=== PATIENT | male | born 1945 | race Caucasian/White ===

== ENCOUNTER → 2023-10-18 12:50 | Outpatient (REF) | payer MEDICARE, SELFPAY | LOC: DHCBC MAIN 12:50 | PROVIDERS: ATTENDING PHYSICIAN Internal Medicine Cardiovascular Disease; FAMILY PHYSICIAN Internal Medicine | DX: R06.00 Dyspnea, unspecified (principal); I48.21 Permanent atrial fibrillation | CPT/HCPCS: 93306 ==

== ENCOUNTER → 2025-02-03 12:52 | Outpatient (REF) | payer MEDICARE, SELFPAY | LOC: RAD 12:52 | PROVIDERS: ATTENDING PHYSICIAN Internal Medicine; FAMILY PHYSICIAN Internal Medicine | DX: I48.21 Permanent atrial fibrillation (principal); I77.810 Thoracic aortic ectasia | CPT/HCPCS: 71275; Q9967 ==

== ENCOUNTER → 2025-03-03 11:12 | Outpatient (REF) | payer MEDICARE, SELFPAY | LOC: HWRAD 11:12 | PROVIDERS: ATTENDING PHYSICIAN Internal Medicine; FAMILY PHYSICIAN Internal Medicine | DX: E04.1 Nontoxic single thyroid nodule (principal) | CPT/HCPCS: 76536 ==

== ENCOUNTER → 2025-04-16 12:31 | Outpatient (REF) | payer MEDICARE, SELFPAY ==
[2025-04-16 13:50] LABS: Hematocrit 39.0 % (39.0-52.0); Hemoglobin 12.9 g/dL (13.0-18.0); Mean Corp Hgb Conc. 33.1 g/dL (33.0-37.0); Mean Corpuscular Volume 92.2 fL (80.0-94.0); Nucleated Red Blood Cells % 0 % (-); Platelet Count 195 10^3/uL (130-400); Red Cell Dist. Width 14.4 % (11.5-14.5)
[2025-04-16 14:07] LABS: ALT (SGPT) 18 U/L (0-50); AST (SGOT) 22 U/L (17-59); Albumin 4.1 g/dl (3.5-5.0); Alkaline Phosphatase 83 U/L (38-126); Blood Urea Nitrogen 23 mg/dl (9-20); Calcium 9.3 mg/dl (8.4-10.2); Carbon Dioxide 29 mmol/L (22-30); Chloride 103 mmol/L (98-107); Glucose 87 mg/dl (70-99); Potassium 4.7 mmol/L (3.5-5.1); Sodium 139 mmol/L (135-145); Total Protein 7.5 g/dl (6.3-8.2); eGFR > 60.00
== END ==
LOC: SDSPAT 12:31
PROVIDERS: ATTENDING PHYSICIAN Student in an Organized Health Care Education/Training Program; FAMILY PHYSICIAN Internal Medicine; OTHER PHYSICIAN Internal Medicine
DX: R94.39 Abnormal result of other cardiovascular function study (principal)
CPT/HCPCS: 36415; 80053; 83880; 85025; 93005

== ENCOUNTER → 2025-04-22 12:35 | Outpatient (REF) | payer MEDICARE, SELFPAY ==
[2025-04-22 12:50] VITALS: BP 110/64; BP_SYST 62
[2025-04-22 13:50] VITALS: BP 110/64
== END ==
LOC: RADI 12:35
PROVIDERS: ATTENDING PHYSICIAN Surgery; FAMILY PHYSICIAN Internal Medicine
DX: E04.1 Nontoxic single thyroid nodule (principal)
CPT/HCPCS: 10005; 88173

== ENCOUNTER 2025-05-05 08:19 | Day surgery (SDC) | payer MEDICARE, SELFPAY ==
[2025-04-16 12:50] VITALS: BMI 38.6
--- NOTE | 2025-04-16 13:40 | SLEEP.APNEA ---
Sleep Apnea Order
-
Patient screened as High Risk for Sleep Apnea on Stop Bang Questionnaire. Patient referred to [facility] for Pre-Study.

Name: MART MCADAMS
: 1945
Home Phone: Use [email or web address] instead
Cell Phone: [f_Reg Other Phone]
Work Phone:
Address: [address] [place] [address]
City: [place]
State: [place]
Zip: [f_[facility] Zip]
Family Physician: NO INTERVIEW UNKNOWN
Height 5 ft 3 in
Actual Weight 98.9 kg
Body Mass Index (BMI) 38.6
Ordering Provider: Dinah Tatum
[2025-05-05] VITALS (13 sets, daily range): BP systolic 143–174; BP diastolic 79–98; BMI 38.6
[2025-05-05] MEDS: NSS 297 ML IV (09:12)
--- NOTE | 2025-05-05 13:13 | ITS.CL.PN ---
Front End [employer] Developer - Procedure Note
Procedure
Procedure Note:
CARDIAC CATHETERIZATION REPORT
Date of Procedure: 05/05/2025
Referring: Dr. Delta Dinero MD, PhD
Indication: Dyspnea on exertion, positive cardiac stress test
PROCEDURE(S)
1. left heart catheterization
2. coronary angiography
ACCESS: 6F right common femoral artery (closure: Angioseal x1; of note, right radial access was abandoned due to severe subclavian tortuosity that made catheter manipulation impossible)
CATHETERS
1. 6F JR4
2. 6F JL5
MODERATE SEDATION: 35 minutes of moderate sedation was utilized. An independent medical microbiologist was present to assist with and help manage the patient's level of consciousness and physiologic status.
HEMODYNAMIC DATA
LV 152/20 (EDP 26) mmHg
AO 157/82 (mean 112) mmHg
CORONARY ANGIOGRAPHY
Dominance: Right
LM: large vessel with mild distal tapering.
LAD: large vessel giving rise to a moderate caliber D1, small D2, and moderate caliber D3. There is diffuse calcific disease throughout the proximal to distal LAD that is focally severe (70-80%) in the mid-vessel just after the D2.
LCx: large vessel giving rise to a small OM1, large OM2, and small LPL branch. There is up to 70% focal stenosis in the small LPL but otherwise mild luminal irregularities only.
RCA: Large vessel giving rise to a large RPDA and moderate caliber RPL branch. There is a focal 40% stenosis in the proximal RCA and otherwise mild luminal irregularities.
RADIATION: dose 605 mGy; DAP 63 Gy*cm2; fluoroscopy time 7.4 min
CONCLUSIONS
1. Moderately elevated left ventricular filling pressure and no aortic stenosis
2. Single vessel obstructive coronary artery disease with 70-80% heavily calcified mid-LAD lesion. In the setting of elevated left ventricular filling pressure and prior echo noting severe pulmonary hypertension, I do not think that the LAD disease
is the most likely explanation for the patient's progressive dyspnea on exertion. Furthermore, intervention on the LAD would require calcium modification, jailing of two diagonal branches, and a long stented segment with no more than a 2.25-2.5 mm
distal vessel diameter. Thus, initial medical therapy is the best option.
RECOMMENDATIONS
1. Recommend initial medical therapy for HFpEF and possible ischemic cardiomyopathy. Patient may benefit from SLGT2i +/- aldactone. If SHAY is in part due to coronary ischaemia, titration of anti-anginals could improve symptoms. Today I will increase
diuretic dosing to 40 BID and add amlodipine 5 mg daily.
2. Should symptoms persist despite best medical therapy, PCI to mid-LAD would be reasonable.
Copy to: Dr. Delta Dinero MD, PhD (medical assistant internal medicine); Aly Escalante MD (PCP)
Signed: Portillo Serrano MD, PhD
== END 2025-05-05 15:05 | disposition home or self-care (01) ==
LOC: CATH 08:19
PROVIDERS: ATTENDING PHYSICIAN Student in an Organized Health Care Education/Training Program; FAMILY PHYSICIAN Internal Medicine; OTHER PHYSICIAN Internal Medicine
DX: I25.10 Atherosclerotic heart disease of native coronary artery without angina pectoris (principal); R06.09 Other forms of dyspnea; I48.21 Permanent atrial fibrillation; I10 Essential (primary) hypertension; E78.5 Hyperlipidemia, unspecified; M19.90 Unspecified osteoarthritis, unspecified site; I77.810 Thoracic aortic ectasia; M47.9 Spondylosis, unspecified; Z85.46 Personal history of malignant neoplasm of prostate; M54.30 Sciatica, unspecified side; E66.9 Obesity, unspecified; Z68.38 Body mass index [BMI] 38.0-38.9, adult; I27.20 Pulmonary hypertension, unspecified; Z79.899 Other long term (current) drug therapy; Z79.01 Long term (current) use of anticoagulants; Z80.9 Family history of malignant neoplasm, unspecified; Z82.49 Family history of ischemic heart disease and other diseases of the circulatory system; Z90.79 Acquired absence of other genital organ(s); Z96.653 Presence of artificial knee joint, bilateral; Z92.3 Personal history of irradiation
CPT/HCPCS: 99153; 99152; 93458; C1760; C1769; C1894; Q9967